=== PATIENT | male | born 1945 | race Caucasian/White ===

== ENCOUNTER → 2023-07-10 11:48 | Outpatient (REF) | payer OTHER, SELFPAY | LOC: PAVMRI 11:48 | PROVIDERS: ATTENDING PHYSICIAN Specialist; FAMILY PHYSICIAN Family Medicine | DX: M25.552 Pain in left hip (principal); M16.12 Unilateral primary osteoarthritis, left hip; M54.16 Radiculopathy, lumbar region | CPT/HCPCS: 72148; 73721 ==

== ENCOUNTER → 2023-07-24 08:42 | Outpatient (REF) | payer OTHER, SELFPAY ==
[2023-07-24 10:12] LABS: Blood Urea Nitrogen 15 mg/dl (9-20); Calcium 9.3 mg/dl (8.4-10.2); Carbon Dioxide 25 mmol/L (22-30); Chloride 106 mmol/L (98-107); Glucose 161 mg/dl (70-99); Sodium 139 mmol/L (135-145); eGFR > 60.00
[2023-07-24 10:13] LABS: Potassium 4.6 mmol/L (3.5-5.1)
== END ==
LOC: REG 08:42
PROVIDERS: ATTENDING PHYSICIAN Physical Medicine & Rehabilitation; FAMILY PHYSICIAN Family Medicine
DX: Z01.818 Encounter for other preprocedural examination (principal)
CPT/HCPCS: 36415; 80048; 93005

== ENCOUNTER → 2023-10-02 07:34 | Outpatient (REF) | payer OTHER, SELFPAY | LOC: EMG 07:34 | PROVIDERS: ATTENDING PHYSICIAN Physician Assistant; FAMILY PHYSICIAN Family Medicine | DX: M54.16 Radiculopathy, lumbar region (principal); R20.0 Anesthesia of skin | CPT/HCPCS: 95886; 95911 ==

== ENCOUNTER 2023-11-16 09:16 | Inpatient (IN) | payer OTHER, SELFPAY ==
--- NOTE | 2023-10-22 09:54 | CM ---
Patient is scheduled for an elective L THR on 11/16/23. Spoke with patient prior to surgery via telephone. Patient had a R TSA (2015) and L TSA (2018) at . Reintroduced role of Orthopedic Navigator. Patient reports that he lives with his in a
two story home. There are six (5-1) steps to enter and a flight of steps to the second floor. There is a powder room on the entry level lab technician. He currently functions independently and occasionally uses a cane. He also has a hip kit, raised toilet seat,
firm cushion and hip kit. He has had VN services through [facility]. PCP is Laina Zendejas.
Discussed orthopedic program and post surgical plans. Reviewed anticipated length of stay and that goal is for him to return home at discharge. Also reviewed outpatient PT. Patient is in agreement with tentative plan and will go directly to
outpatient PT at [facility] (where he is currently going for prehab). He will have support from his when he goes home.
Patient will complete online education.
Plan: Orthopedic Navigator will remain available to assist with the care of patient and will reassess discharge needs after surgery.
[2023-11-02 08:40] VITALS: BMI 25.9
[2023-11-02 10:08] LABS: Hematocrit 45.2 % (39.0-52.0); Hemoglobin 15.3 g/dL (13.0-18.0); Mean Corp Hgb Conc. 33.8 g/dL (33.0-37.0); Mean Corpuscular Hgb 27.8 pg (27.0-31.0); Mean Corpuscular Volume 82.2 fL (80.0-94.0); Platelet Count 196 10^3/uL (130-400); Red Cell Dist. Width 13.4 % (11.5-14.5)
[2023-11-02 12:04] LABS: Glycohemoglobin (HgbA1c) 7.9 % (4.0-5.6)
[2023-11-02 12:25] LABS: ALT (SGPT) 32 U/L (0-50); AST (SGOT) 27 U/L (17-59); Alkaline Phosphatase 80 U/L (38-126); Blood Urea Nitrogen 21 mg/dl (9-20); Carbon Dioxide 23 mmol/L (22-30); Estimated Creatinine Clearance 71 ml/min; Glucose 135 mg/dl (70-99); Total Protein 7.8 g/dl (6.3-8.2); eGFR > 60.00
[2023-11-02 12:46] LABS: Chloride 103 mmol/L (98-107); Potassium 4.7 mmol/L (3.5-5.1); Sodium 141 mmol/L (135-145)
--- NOTE | 2023-11-02 14:02 | PTCARENOTE ---
Pt's cardiac clearance states cleared for back surgery if required. Dr. Cisneros stated this is sufficient for upcoming left MYNOR surgery.
--- NOTE | 2023-11-02 15:26 | HPS.HSE ---
Family Physician
-
Family Physician: Laina Zendejas
Chief Complaint
-
Advanced primary osteoarthritis of the left hip.
History of Present Illness
The patient is a 78 year old male presenting today for advanced primary osteoarthritis of the left hip. The patient previously underwent an uncomplicated right total hip arthroplasty remotely with Dr. Archie Slaughter. He returns to
[facility] today with complaints of significant left hip pain associated with his osteoarthritis. He notes that his current pain is greatly interfering with his activities of daily living and is overall impacting his quality of life. He has
tried and failed multiple conservative treatment measures in the past for his pain. These conservative treatment measures include physical therapy, self directed therapeutic exercises, activity modification, corticosteroid injections, medical
management with Tylenol and NSAIDs, and the application of ice and/or heat. A recent MRI of the left hip demonstrated moderate degenerative changes of the left hip joint. He was determined to be in need of a left total hip arthroplasty. He denies
any current complaints today such as chest pain, shortness of breath, palpitations, nausea, vomiting, diarrhea, lightheadedness, dizziness, cough, sore throat, or fever.
Medical History
Past Medical History
Past Medical History: Reports Other
Additional Past Medical History:
1. Osteoarthritis, status post right total shoulder arthroplasty, 2014, and left total shoulder arthroplasty, 2018, by Dr. Navin Galdamez, and remote right total hip arthroplasty by Dr. Archie Slaughter.
2. Hypertension.
3. Hyperlipidemia.
4. Coronary artery disease, status post PCI with drug-eluting stent to RCA x2 2018
5. PVCs, asymptomatic.
6. Bifascicular block.
7. Left ventricular hypertrophy.
8. Mild-moderate mitral regurgitation.
9. History of orthostatic hypotension.
10. Chronic dyspnea on exertion.
11. Non-insulin dependent diabetes, hemoglobin A1c 7.9.
12. GERD.
13. Hiatal hernia.
14. Diverticulitis with pelvic abscess, 2018, status post partial colectomy with colostomy and subsequent reversal.
15. Chronic diarrhea.
16. Lumbosacral stenosis with radiculopathy.
17. Remote prostate cancer, status post radiation.
18. Hearing impairment bilaterally.
Past Surgical History: Reports Other
Additional Past Surgical History:
1. Remote right total hip arthroplasty by Dr. Archie Slaughter.
2. Right total shoulder arthroplasty, 2015, by Dr. Navin Galdamez.
3. Left total shoulder arthroplasty, 2018, by Dr. Navin Galdamez.
4. Bilateral knee meniscectomy.
5. Left trigger finger release.
6. PCI with drug eluting stent to RCA x2.
7. Partial colectomy with colostomy.
8. Colostomy reversal.
9. Multiple epidural steroid injections.
10. Multiple colonoscopies.
Social History
Tobacco: Non-smoker
Alcohol: Occasional
Personal:
Living: Other (He lives with his in a 2 story home. )
Family History
Family History: Not pertinent
Allergies / Home Medications
Allergy/Medication List:
Home medications:
1. Tylenol 1000 mg p.o. every 6 hours as needed.
2. Amlodipine 5 mg p.o. daily.
3. Ascorbic acid 1000 mg p.o. daily.
4. Chromium picolinate 1000 mg p.o. daily.
5. CoQ10 400 mg p.o. daily.
6. Jardiance 25 mg p.o. daily.
7. Glipizide 10 mg p.o. twice a day.
8. Metformin 250 mg p.o. daily.
9. Multivitamin 1 tablet p.o. daily.
10. Aleve 1 tablet p.o. twice a day as needed.
11. Pindolol 10 mg p.o. daily.
12. Rosuvastatin 20 mg p.o. every evening.
13. Tamsulosin 0.4 mg p.o. every evening.
14. Triple action joint health 1 tablet p.o. daily.
15. Valsartan 80 mg p.o. every evening.
16. Cholecalciferol 25 mcg p.o. daily.
Allergies: No known allergies.
Review of Systems
-
A 12 point ROS was completed and negative except as noted: Yes
Physical Exam
Vital Signs
Blood pressure 117/68. Heart rate 70. Respirations 18. Pulse ox 99%.
Height 5 feet, 6 inches. Weight 72.7 kg. BMI 25.9.
Physical Exam
General: Well Developed, Well Nourished and No Apparent Distress
HEENT: NormoCephalic, Moist mucous membranes, Atraumatic, PERRLA and Hearing Impaired
Respiratory: Clear
Cardiac: Regular Rhythm
GI: Soft, Non Tender and Non Distended
Musculoskeletal: Other (Left hip: pain with minimal internal rotation, pain with external rotation to 20 degrees, no pain with abduction to 30 degrees, mild pain with flexion to 110 degrees. No greater trochanteric tenderness. )
Skin: Warm and Dry
Neuro: AO x 3 and Nonfocal/grossly intact
Laboratory Results
-
11/02/23 08:28
11/02/23 08:28
Laboratory Results
Total Bilirubin 1.0 mg/dl (0.2-1.3) 11/02/23 08:28
AST 27 U/L (17-59) 11/02/23 08:28
ALT 32 U/L (0-50) 11/02/23 08:28
Alkaline Phosphatase 80 U/L (38-126) 11/02/23 08:28
Hemoglobin A1c 7.9.
MRSA nasal swab negative.
EKG provided by Cardiology.
Stress echocardiogram 07/2022 (per cardiac clearance note): Negative for exercise induced ischemia or arrhythmia.
Impression/Plan
-
CLEARANCES:
1. Primary medical, Dr. Laina Zendejas, cleared.
Primary medical phone number: [phone].
2. Cardiology, Dr. Finn Bell, cleared.
3. Dental waived.
IMPRESSION/PLAN:
1. Advanced primary osteoarthritis of the left hip in need of a left total hip arthroplasty with Dr. Archie Slaughter on 11/16/2023. The benefits and risks of the procedure have been explained to the patient. The patient understands these risks and
wishes to proceed.
2. DVT prophylaxis: Aspirin with bilateral venous compression devices.
3. History of orthostatic hypotension: Orthostatic vital signs will be monitored frequently during admission. He will be provided with intravenous fluids post-surgery and oral hydration will be encouraged. Midodrine will be considered if felt
indicated.
4. Chronic diarrhea: Colace will only be used initially for post-surgical bowel regimen.
5. Non-insulin dependent diabetes, A1c 7.9: A strict carbohydrate controlled diet will be advised franco-operatively to ensure adequate wound healing and infection prevention.
Patient's home phone number: [phone].
Patient's cell phone number: [phone].
Patient's contact (Dhara Caitie - Spouse): [phone].
[2023-11-02 17:00] VITALS: BMI 25.9
[2023-11-16] VITALS (14 sets, daily range): BP systolic 105–143; BP diastolic 63–80; PULSE 74–84; O2SAT 94–95; BMI 25.9
[2023-11-16 09:47] LABS: Glucose - Point of Care 129 mg/dl (70-99)
[2023-11-16] MEDS: BACTROBAN NASAL 1 GRAM NASAL (09:50)
[2023-11-16] MEDS: CELEBREX 200 MG PO (09:51)
[2023-11-16] MEDS: NORMOSOL-R 1000 IV (09:51)
[2023-11-16] MEDS: TYLENOL 650 MG PO ×2 (09:51→18:02)
--- NOTE | 2023-11-16 14:30 | W.PN.ORTHO ---
Today's Communication / Plan
-
D/c when clinically stable.
Assessment
.
Distal Motor Intact: Yes
Dressing:
Clean, dry and intact.
Assessment:
L hip OA s/p Amparo LOWE w/ Dr Slaughter 11/16/23
- s/p R CIPRIANO, 2014, and L CIPRIANO, 2017, by Dr. Navin Galdamez, and remote R MYNOR by Dr. Archie Slaughter
DVT prophylaxis - ASA, b/l venous foot pumps
HTN - + parameters - monitor BP
Coronary artery disease, status post PCI with drug-eluting stent to RCA 2018
PVCs, asymptomatic
Bifascicular block
- Monitor on tele
History of orthostatic hypotension - monitor orthostatic VS q8h
- IVF running
- Encourage oral hydration
- Continue BP parameters on anti-hypertensives
- Consider Midodrine
Non-insulin dependent diabetes, hemoglobin A1c 7.9 - monitor BS
- Resume home meds
- + SSI AC during admission
- Would benefit from Cefadroxil upon d/c
GERD and Hiatal hernia - add Pepcid HS
Chronic diarrhea - Colace ONLY initially for post-surgical bowel regimen
Lumbosacral stenosis with radiculopathy - consider Gabapentin or Lyrica
Hyperlipidemia
Left ventricular hypertrophy
Mild-moderate mitral regurgitation
Chronic dyspnea on exertion
Diverticulitis with pelvic abscess, 2018, status post partial colectomy with colostomy and subsequent reversal
Remote prostate cancer, status post radiation
Hearing impairment bilaterally
Plan
.
Surgery / Date: Amparo LOWE w/ Dr Slaughter 11/16/23
DVT Prophylaxis: Aspirin
Activity:
Out of bed.
PT/OT
Discharge Plan: Home w/ Outpatient PT
Subjective
.
.:
Patient resting comfortably in PACU.
L hip pain minimal and currently well tolerated.
Denies any new significant complaints.
Vital Signs and Labs
.
Vital Signs and Labs:
Lab Results
11/02/23 08:28
11/02/23 08:28
Physical Exam
-
HEENT: No pallor, cyanosis, or jaundice. Throat clear.
NECK: Supple. No JVD.
RESPIRATORY: Lungs clear to auscultation.
CVS: S1, S2 normal. RRR.�
ABDOMEN: Soft, non-tender. No distension.
EXTREMITIES: Strength equal, no calf pain with palpation/dorsiflexion. Calves soft.
LINER REROLL TENDER: AOx3. No focal deficits. warehouse handler grossly intact
[2023-11-16 14:49] LABS: Glucose - Point of Care 95 mg/dl (70-99)
[2023-11-16] MEDS: ROXICODONE 5 MG PO (14:51)
--- NOTE | 2023-11-16 15:30 | PTCARENOTE ---
Pt received from the PACU via bed. Transport was w/o incident. Pt is AAOx3, HRR, lungs are clear, resp. easy., VSS, Pt is afebrile. Pt's left hip with Aquacell dressing C/D/I. no drainage noted. Ice pack applied as ordered. Pt denies pain and denies
nausea at this time. Pt instructed on plan of care. Pt verbalized understanding of instructions. Call valle is within reach.
[2023-11-16 17:23] LABS: Glucose - Point of Care 183 mg/dl (70-99)
[2023-11-16] MEDS: VISKEN 10 MG PO (18:01)
[2023-11-16] MEDS: FLOMAX 0.400000000000000022 MG PO (18:02)
[2023-11-16] MEDS: JARDIANCE 25 MG PO (18:02)
[2023-11-16] MEDS: ASPIRIN 325 MG PO (18:02)
[2023-11-16] MEDS: GLUCOTROL XL (EXTENDED RELEASE) 10 MG PO (18:02)
[2023-11-16] MEDS: NORVASC 5 MG PO (18:02)
[2023-11-16] MEDS: CRESTOR 20 MG PO (18:03)
[2023-11-16] MEDS: GLUCOPHAGE 250 MG PO (18:05)
[2023-11-16] MEDS: BACTROBAN 2% OINTMENT 1 APPLIC NASAL (19:56)
[2023-11-16] MEDS: ANCEF 5 IV (19:56)
[2023-11-16] MEDS: COLACE PO (19:57)
[2023-11-16] MEDS: TYLENOL PO (21:00)
[2023-11-16 21:52] LABS: Glucose - Point of Care 249 mg/dl (70-99)
--- NOTE | 2023-11-16 22:00 | PTCARENOTE ---
Pt OOB to hip chair, did well ambulating to toilet w staff standby assist x1 w RW. C/o 06/03 pain post ambulation. Assessment ongoing.
[2023-11-16] MEDS: PEPCID 20 MG PO (22:07)
[2023-11-16] MEDS: TORADOL 10 MG IV (22:07)
[2023-11-17] MEDS: TYLENOL PO (01:00)
[2023-11-17 03:23] VITALS: BP 113/66
[2023-11-17] MEDS: ANCEF 5 IV (04:25)
[2023-11-17] MEDS: TYLENOL 650 MG PO ×2 (04:25→09:37)
[2023-11-17 07:15] VITALS: BP 109/62; BP 111/61; BP 92/60; PULSE 92; PULSE 93
[2023-11-17 07:19] LABS: Glucose - Point of Care 183 mg/dl (70-99)
--- NOTE | 2023-11-17 08:43 | CM ---
Addendum entered by Dayanna Christy 11/17/23 11:05:
Patient did well in therapy and has no concerns about going home.
Original Note:
Reviewed chart and held rounds with PT, OT and nursing. Patient admitted as planned for elective L THR. Met with patient at bedside. Confirmed information previously obtained for assessment. Also discussed discharge plans. The plan is for patient to
return home at discharge. He will have support from his when he goes home. Patient will go directly to outpatient PT and will go to [facility]. He has an appointment scheduled for Thursday, 11/17.
Patient has all needed DME.
He will use [facility] pharmacy for discharge prescriptions.
Discharge plans were reviewed with patient's on 11/15.
[2023-11-17 08:45] VITALS: BP 101/67; BP 114/66; PULSE 94; O2SAT 98
[2023-11-17] MEDS: GLUCOTROL XL (EXTENDED RELEASE) 10 MG PO (09:36)
[2023-11-17] MEDS: CELEBREX 200 MG PO (09:36)
[2023-11-17] MEDS: JARDIANCE 25 MG PO (09:36)
[2023-11-17] MEDS: VISKEN PO (09:37)
[2023-11-17] MEDS: GLUCOPHAGE 250 MG PO (09:38)
[2023-11-17] MEDS: NORVASC PO (09:38)
[2023-11-17] MEDS: ASPIRIN 325 MG PO (09:39)
[2023-11-17] MEDS: BACTROBAN 2% OINTMENT 1 APPLIC NASAL (09:39)
[2023-11-17] MEDS: COLACE 100 MG PO (09:39)
[2023-11-17] MEDS: ROXICODONE 5 MG PO (09:46)
--- NOTE | 2023-11-17 10:47 | W.PN.ORTHO ---
Today's Communication / Plan
-
D/c today since clinically stable, did well w/ PT and OT.
Assessment
.
Distal Motor Intact: Yes
Dressing:
Clean, dry and intact.
Assessment:
L hip OA s/p L MYNOR w/ Dr Slaughter 11/16/23
- s/p R CIPRIANO, 2014, and L CIPRIANO, 2017, by Dr. Navin Galdamez, and remote R MYNOR by Dr. Archie Slaughter
DVT prophylaxis - ASA, b/l venous foot pumps
HTN - + parameters - BPs stable
Coronary artery disease, status post PCI with drug-eluting stent to RCA 2018
PVCs, asymptomatic
Bifascicular block
- Rhythm stable on tele
History of orthostatic hypotension - orthostatic VS WNL
- s/p IVF
- Encouraged oral hydration
- Continue BP parameters on anti-hypertensives
- Midodrine not indicated thankfully
Non-insulin dependent diabetes, hemoglobin A1c 7.9 - BS readings initially elevated 2* surgical stress, IV steroids in OR, holding of AM diabetic meds
- BS readings improving, however, with resumption of home meds and diabetic diet
- + SSI AC during admission
- Would benefit from Cefadroxil upon d/c
GERD and Hiatal hernia - added Pepcid HS
Chronic diarrhea - Colace ONLY initially for post-surgical bowel regimen
Lumbosacral stenosis with radiculopathy - consider Gabapentin or Lyrica
Hyperlipidemia
Left ventricular hypertrophy
Mild-moderate mitral regurgitation
Chronic dyspnea on exertion
Diverticulitis with pelvic abscess, 2018, status post partial colectomy with colostomy and subsequent reversal
Remote prostate cancer, status post radiation
Hearing impairment bilaterally
Plan
.
Surgery / Date: L MYNOR w/ Dr Slaughter 11/16/23
DVT Prophylaxis: Aspirin
Activity:
Out of bed.
PT/OT
Discharge Plan: Home w/ Outpatient PT
Subjective
.
.:
Patient resting comfortably in his chair.
Did well w/ PT and OT today.
Left hip pain fairly well controlled w/ minimal pain meds overnight.
Eager for potential d/c.
Vital Signs and Labs
.
Vital Signs and Labs:
Lab Results
11/02/23 08:28
11/02/23 08:28
Temp Pulse Resp BP Pulse Ox
97.8 F 94 16 113/66 96
11/17/23 03:23 11/17/23 03:23 11/17/23 03:23 11/17/23 03:23 11/17/23 03:23
Non-invasive Hgb result: 13.8
Physical Exam
-
HEENT: No pallor, cyanosis, or jaundice. Throat clear.
NECK: Supple. No JVD.
RESPIRATORY: Lungs clear to auscultation.
CVS: S1, S2 normal. RRR.�
ABDOMEN: Soft, non-tender. No distension.
EXTREMITIES: Strength equal, no calf pain with palpation/dorsiflexion. Calves soft.
POLICE RECORDS CLERK: AOx3. No focal deficits. manager personal grossly intact
--- NOTE | 2023-11-17 10:49 | W.DS.TRANS ---
DC Summary - [employer]
-
Discharge Instructions:
Sleep Apnea Risk Intermediate
Discharge Diagnosis/Procedures L hip OA s/p L MYNOR w/ Dr Slaughter 11/16/23
Diet Diabetic, Carb Controlled
Activity As tolerated,With Walker
Driving Restrictions Not until seen by your Dr
Bathing Restrictions OK to Shower
Other Services PT
Wound Care Dressing to be removed 1 week post-surgery.
Sindi to be removed at 2 week follow-up with
surgeon's office.
Instructions:
Stand-Alone Forms: Total Hip/Knee Replacement D/C
Changes to Home Medications: Yes
Discharge Medications:
DC Medications w/original date entered in [employer]
Chromium Picolinate 1,000 mg PO DAILY 12/19/14
coenzyme Q10 400 mg capsule (Co Q-10) 400 mg PO DAILY Supplement 12/19/14
tamsulosin 0.4 mg capsule 0.4 mg PO QPM Urinary Issue 12/19/14
ascorbic acid (vitamin C) 500 mg tablet (Vitamin C) 1,000 mg PO DAILY Supplement 01/10/15
pindolol 10 mg tablet 10 mg PO DAILY Blood Pressure 08/05/17
Triple Action Joint Health 1 tab PO DAILY 10/28/23
cholecalciferol (vitamin D3) 25 mcg (1,000 unit) tablet (Vitamin D3) 25 mcg PO DAILY Supplement 10/28/23
glipizide 10 mg tablet, extended release 24 hr 10 mg PO BID Diabetes 10/28/23
metformin 500 mg tablet 250 mg PO BID Diabetes 10/28/23
multivitamin 1 tab PO DAILY Supplement 10/28/23
rosuvastatin 20 mg tablet 20 mg PO QPM High Cholesterol 10/28/23
empagliflozin 25 mg tablet 25 mg PO DAILY Diabetes 11/02/23
mupirocin 2 % topical ointment 1 applic intranasal BID #1 tube 11/02/23
Saccharomyces boulardii 250 mg capsule (Florastor) 250 mg PO BID #14 caps 11/17/23
acetaminophen 500 mg tablet (Tylenol Extra Strength) 1,000 mg (2 x 500 mg) PO Q6H #30 tabs 11/17/23
amlodipine 5 mg tablet 5 mg PO DAILY Blood Pressure #1 tab 11/17/23
aspirin 325 mg tablet 325 mg PO DAILY #30 tabs 11/17/23
cefadroxil 500 mg capsule 500 mg PO BID #14 caps 11/17/23
celecoxib 200 mg capsule 200 mg PO DAILY #30 caps 11/17/23
docusate sodium 100 mg capsule 100 mg PO BID #30 caps 11/17/23
famotidine 20 mg tablet 20 mg PO HS #30 tabs 11/17/23
ondansetron HCl 4 mg tablet 4 mg PO Q6H PRN nausea and vomiting #30 tabs 11/17/23
oxycodone 5 mg tablet 5 - 10 mg (1 - 2 x 5 mg) PO Q6H PRN moderate-severe pain #30 tabs 11/17/23
sennosides 8.6 mg capsule (senna) 17.2 mg (2 x 8.6 mg) PO BID PRN Constipation #30 caps 11/17/23
valsartan 80 mg tablet 80 mg PO QPM Blood Pressure #0 tabs 11/17/23
Home Medication Changes
Saccharomyces boulardii 250 mg capsule (Florastor) 250 mg PO BID #14 caps 11/17/23
acetaminophen 500 mg tablet (Tylenol Extra Strength) 1,000 mg (2 x 500 mg) PO Q6H #30 tabs 11/17/23
aspirin 325 mg tablet 325 mg PO DAILY #30 tabs 11/17/23
cefadroxil 500 mg capsule 500 mg PO BID #14 caps 11/17/23
celecoxib 200 mg capsule 200 mg PO DAILY #30 caps 11/17/23
docusate sodium 100 mg capsule 100 mg PO BID #30 caps 11/17/23
famotidine 20 mg tablet 20 mg PO HS #30 tabs 11/17/23
ondansetron HCl 4 mg tablet 4 mg PO Q6H PRN nausea and vomiting #30 tabs 11/17/23
oxycodone 5 mg tablet 5 - 10 mg (1 - 2 x 5 mg) PO Q6H PRN moderate-severe pain #30 tabs 11/17/23
sennosides 8.6 mg capsule (senna) 17.2 mg (2 x 8.6 mg) PO BID PRN Constipation #30 caps 11/17/23
Pending Results: No
[2023-11-17 11:17] VITALS: BP 120/66
== END 2023-11-17 11:35 | disposition home or self-care (01) | DRG 470 ==
LOC: 2 SOUTH 09:16
PROVIDERS: ADMITTING PHYSICIAN Specialist; FAMILY PHYSICIAN Family Medicine
PROC: 0SRB0JZ Replacement of Left Hip Joint with Synthetic Substitute, Open Approach (ICD-10-PCS; 2023-11-16)
DX: M16.12 Unilateral primary osteoarthritis, left hip (principal); I45.2 Bifascicular block; I10 Essential (primary) hypertension; E78.5 Hyperlipidemia, unspecified; I25.10 Atherosclerotic heart disease of native coronary artery without angina pectoris; E11.9 Type 2 diabetes mellitus without complications; Z95.5 Presence of coronary angioplasty implant and graft
CPT/HCPCS: 36415; 73502; 80053; 82962; 83036; 85027; 87070; 97110; 97116; 97162; 97166; 97530; 97535; C1713; C1776